=== PATIENT | male | born 1965 | race Two or more races ===

== ENCOUNTER 2016-08-02 08:14 | Day surgery (SDC) | payer OTHER ==
[2016-08-02] VITALS (17 sets, daily range): BP systolic 132–142; BP diastolic 79–96; PULSE 54–72; RESP 12–18; Ht 172.7 cm; Wt 88.0 kg
[~2016-08-02] VITALS: Ht 172.7 cm; Wt 88.0 kg
[~2016-08-02 08:14] MED LIST: BUPIVACAINE 0.25% (MPF) 30 ML INJ INJ ONE
[2016-08-02] MEDS ORDERED: SOD CHLORIDE 0.9% 1,000 ML IV ONE (08:30)
[2016-08-02] MEDS ORDERED: VANCOMYCIN 1 GM in NS 250 ML IVPB ONE (08:30)
[2016-08-02 09:55] LABS: CALCIUM 8.9 mg/dl (8.4-10.2); CREATININE 0.78 mg/dl (0.61-1.24); INR 1.1; POTASSIUM 3.9 mmol/L (3.5-5.1); PROTIME 14.2 Sec (12.2-14.2); PT RATIO 1.1
--- NOTE | 2016-08-02 09:55 | RADRPT ---
PROCEDURE: XR Chest. CLINICAL INDICATION: Preoperative chest TECHNIQUE: Chest AP portable. COMPARISON: No comparison available. FINDINGS: The mediastinal structures are unremarkable. The heart is normal in size and configuration. The pu lmonary vascularity is normal. The lung andres are unremarkable. No consolidation is identified. The pleural spaces are unremarkable. The axial skeleton is unremarkable. IMPRESSION: No active intrathoracic disease. RPTAT: HGDB .Davey Hayes MD, MD Date Time Electronically viewed and signed by .Davey Hayes MD, MD on 08/02/2016 09:54 .B/
[2016-08-02 09:56] LABS: PARTIAL THROMBOPLASTIN TIME 33.5 Sec (25.0-35.0)
[2016-08-02 09:58] LABS: BASOPHILS % 0.6 % (0.0-2.0); HEMOGLOBIN 14.8 g/dl (14.0-18.0); LYMPHOCYTES # 1.5 10^3/ul (0.8-2.9); LYMPHOCYTES % 34.6 % (15.0-51.0); MEAN CORPUSCULAR HGB CONC 34.5 g/dl (32.0-37.0); MEAN CORPUSCULAR VOLUME 89.8 fl (82.0-101.0); MONOCYTE # 0.3 10^3/ul (0.3-0.9); NEUTROPHIL # 2.5 10^3/ul (1.6-7.5); NEUTROPHILS % 56.8 % (39.0-77.0); PLATELET COUNT 143 10^3/UL (140-440); RED BLOOD COUNT 4.79 10^6/ul (4.70-6.10); RED CELL DISTRIBUTION WIDTH 13.6 % (11.5-14.5); UNCORRECTED WBC 4.4 10^3/ul (4.8-10.8); WHITE BLOOD COUNT 4.4 10^3/ul (4.8-10.8)
[2016-08-02 10:20] LABS: CONDITION 1
[2016-08-02] MEDS ORDERED: CITRIC ACID/NA CITRATE 30 ML CUP ONE (10:56)
[2016-08-02] MEDS ORDERED: ROCURONIUM 50 MG INJ ONE (10:57)
[2016-08-02] MEDS ORDERED: PROPOFOL 20 ML ONE (10:57)
[2016-08-02] MEDS ORDERED: MIDAZOLAM 1 MG/ML 2 ML INJ ONE (10:58)
[2016-08-02] MEDS ORDERED: FENTAnyl 50 MCG/ML VIAL ONE (10:58)
[2016-08-02] MEDS ORDERED: ONDANSETRON 4 MG INJ IV PRN ×3 (11:00→17:00)
[2016-08-02] MEDS ORDERED: ACETAMINOPHEN/CODEINE #3 TAB PO PRN ×2 (11:00→17:00)
[2016-08-02] MEDS ORDERED: morphine 2 MG INJ IV PRN (11:00)
[2016-08-02] MEDS ORDERED: ACETAMINOPHEN 1000MG/100ML IV 100 ML IVPB PRN (11:00)
[2016-08-02] MEDS ORDERED: ROPIVACAINE 0.2% 20 ML VIAL ONE (11:05)
[2016-08-02] MEDS ORDERED: PHENYLephrine (100 MCG/ML) 5ML SYG ONE (11:29)
[2016-08-02] MEDS ORDERED: EPHEDrine SULFATE 50 MG/5 ML SYG ONE (11:52)
[2016-08-02] MEDS ORDERED: ESMOLOL 10 ML ONE (11:59)
[2016-08-02] MEDS ORDERED: GLYCOPYRROLATE 0.4 MG INJ ONE (12:19)
[2016-08-02] MEDS ORDERED: NEOSTIGMINE 3 MG/3 ML SYRINGE ONE (12:19)
[2016-08-02] MEDS ORDERED: ONDANSETRON 4 MG INJ ONE (12:27)
[2016-08-02] MEDS ORDERED: FAMOTIDINE 20 MG INJ ONE (12:27)
[2016-08-02] MEDS ORDERED: HYDROmorphONE (0.2 MG/ML) 10ML SYG IV PRN (12:30)
[2016-08-02] MEDS ORDERED: hydrALAzine 20 MG INJ IV PRN (12:30)
[2016-08-02] MEDS: HYDROmorphONE (0.2 MG/ML) 10ML SYG IV PRN ×2 (12:57→13:39)
--- NOTE | 2016-08-02 13:56 | OPR ---
DATE OF OPERATION: 08/02/2016 PREOPERATIVE DIAGNOSES: 1. Symptomatic cholelithiasis. 2. Umbilical hernia. POSTOPERATIVE DIAGNOSIS: 1. Symptomatic cholelithiasis with chronic cholecystitis. 2. Umbilical hernia. OPERATION PERFORMED: 1. Laparoscopic cholecystectomy. 2. Umbilical herniorrhaphy. ANESTHESIOLOGIST INDICATIONS FOR PROCEDURE: The patient is a 50-year-old male who presented with right upper quadran t pain. Workup including ultrasound revealed the gallstone to be completely filled with calculi. T he patient was counseled as to the risks versus benefits of cholecystectomy. He consented. It was also noted that he had umbilical hernia on exam and was told that, that would be repaired at the [facility] time, he also consented for the umbilical hernia repair. DESCRIPTION OF PROCEDURE: The patient was brought to the operating theater, placed under general en dotracheal tube anesthesia. The abdomen was shaved, prepped and draped in usual sterile fashion. A 2-cm incision was made in the midline just above the umbilicus. Subcutaneous tissue was dissected with cautery down to the anterior rectus sheath, 0 Vicryl stay sutures were placed on either side of the linea alba. The linea alba was incised and the abdomen was entered without difficulty. Dr. Teresita harman palpated the umbilical region. A small hernia was just inferior to the incision. Decision was made to repair that after first performing a cholecystectomy. The Kya trocar was then placed in the standard fashion and the abdomen was insufflated to a press ure of approximately 14 mmHg with carbon dioxide. Laparoscope was introduced. Attention was direct ed to the right upper quadrant where a very thick walled gallbladder with omental adhesions and a ve ry large stone silhouette was identified. Three accessory ports were placed under direct vision in standard fashion. The gallbladder was then grasped through the lateral port sites at the fundus and neck and with combination of blunt dissection and cautery, the adhesions were taken down. The mavis toneum overlying the gallbladder was incised both medially and laterally, to allow mobilization of [facility] [place]. With meticulous dissection, the cystic duct was isolated. Two clips were elvin nicolas across it distally and it was then transected with endovascular ALEX stapler. Subsequently, cyst ic artery was isolated, triply clipped and transected. Gallbladder was dissected out of the gallbla dder fossa using cautery. Prior to final transection, irrigation and inspection took place. Minimal bleeding was controlled w ith cautery. The gallbladder was transected. Laparoscope was moved to the 12-mm subcostal port sit e, and the gallbladder was retrieved from the abdomen using the gallbladder retrieval bag, and broug ht out through the umbilical port site. Kya trocar was returned to the abdomen. The abdomen was reinsufflated. The laparoscope was moved back to the umbilical port. Final irrigation and inspect ion took place. There was no evidence of bleeding. The 3 accessory ports were then removed. Again , there was no evidence of bleeding. Finally, the umbilical port was removed. Dr. Castelan then made in full extension of the incision at the umbilical port inferiorly to open up her hernia. The sac w as transected. It contained only fatty tissue consistent with probable omentum. It was sent for pe rmanent pathologic analysis. The defect was then repaired in primary fashion with 0 Prolene sutures in [id number] fashion. All wounds were irrigated with Betadine and skin incisions were reapproximated with skin jong. T he patient tolerated the procedure well. Estimated blood loss was 20 mL. There were no complicatio ns and the patient was transported in stable condition to the recovery room. Dictated By: AGUSTIN MCCANN/DAMION Conf#: [id number] DID#: [id number]
[2016-08-02] MEDS: D5W-0.45 NACL + KCL 20 MEQ 1,000 ML IV SCH ×2 (17:00→18:32)
--- NOTE | 2016-08-02 17:22 | HP ---
DATE OF ADMISSION: 08/02/2016 HISTORY OF PRESENT ILLNESS: The patient is a 50-year-old male who presented with right upp er quadrant pain. Workup including ultrasound revealed gallbladder to be completely filled with agnelita culi. The patient was diagnosed with chronic cholecystitis. The patient was brought to the [facility] and underwent laparoscopic cholecystectomy and umbilical herniorrhaphy. The patient experienced s ome postoperative pain and nausea. Patient will be admitted for further evaluation and management t o the medical surgical floor. PAST MEDICAL HISTORY: Patient denies having a past medical history. Denies hypertension, denies laith betes, denies any cardiac problems. PAST SURGICAL HISTORY: None. SOCIAL HISTORY: The patient lives at home. Patient denies any tobacco use. Denies any illicit sundeep g use. Patient stated that he uses alcohol occasionally. FAMILY HISTORY: Noncontributory. ALLERGIES: THE PATIENT IS ALLERGIC TO PENICILLIN. MEDICATIONS ON ADMISSION: None. REVIEW OF SYSTEMS: A 12-point review of systems is negative unless what mentioned in the HPI. PHYSICAL EXAMINATION: GENERAL: Well-developed, well-nourished gentleman in no acute distress. VITAL SIGNS: Temperature is 97.4, pulse is 56, blood pressure is 132/90, respiratory rate 16, oxyge n saturation is 100% on 2 liters nasal cannula. HEENT: Head is atraumatic, normocephalic. Pupils equal, round, reactive to light and accommodation . Oral mucosa is pink and moist. NECK: Supple, no cervical lymphadenopathy, no thyromegaly. CHEST: Lungs clear bilaterally. There is no rhonchi, wheezes, rales noted. CARDIOVASCULAR: Normal S1, S2. No murmurs, gallops, clicks, rubs noted. ABDOMEN: Status post laparoscopic surgery. EXTREMITIES: There is no edema, clubbing, cyanosis. Pulses equal bilaterally 2+. SKIN: There is no rash, petechiae noted. NEUROLOGIC: Patient is awake, alert and oriented x4. No focal deficits noted. Motor strength 5/5 in all extremities. LABORATORY DATA: On admission, CBC: White blood cells 4.4, hemoglobin 14.8, hematocrit 43.0, platel ets 143. Chemistry: Sodium 143, potassium 2.9, chloride 106, carbon dioxide 26, anion gap 15, BUN of 17, creatinine 0.78, glucose 99, calcium is 8.9. PT is 14.2, INR 1.1, APTT is 33.5. IMAGING: Chest x-ray with no active intrathoracic disease. ASSESSMENT AND PLAN: 1. Symptomatic cholelithiasis with chronic cholecystitis status post laparoscopic cholecystectomy. 2. Umbilical hernia, status post umbilical herniorrhaphy by Dr. Castelan. Admit patient to medical/codey gical floor 3. Tylenol p.r.n. and morphine p.r.n. for pain, Zofran p.r.n. for nausea. Continue IV fluids, adva nce diet as patient tolerates. The patient received preoperative antibiotics. 4. Continue IV fluids, sequential compression device for deep venous thrombosis prophylaxis. CBC a nd BMP tomorrow. Further recommendations based on clinical course. Plan of care discussed with Dr. Ross. Dictated By: JESUS CHIRINOS DECORATION CHECKER for ROLANDO ROSS MD SR/NTS Conf#: [id number] DID#: [id number]
[2016-08-02] MEDS: morphine 2 MG INJ IV PRN (18:34)
[2016-08-03] VITALS: BP 122/79; PULSE 70; RESP 20
[2016-08-03] MEDS: D5W-0.45 NACL + KCL 20 MEQ 1,000 ML IV SCH ×2 (00:42→08:47)
[2016-08-03] MEDS: morphine 2 MG INJ IV PRN ×2 (00:44→08:47)
[2016-08-03 04:00] VITALS: BP 122/70; PULSE 67; RESP 20
[2016-08-03 07:39] VITALS: BP 128/87; RESP 19
[2016-08-03 08:29] LABS: BASOPHILS % 0.6 % (0.0-2.0); EOSINOPHILS % 0.8 % (0.0-7.0); HEMATOCRIT 40.6 % (42.0-52.0); HEMOGLOBIN 13.9 g/dl (14.0-18.0); LYMPHOCYTES # 1.6 10^3/ul (0.8-2.9); LYMPHOCYTES % 26.5 % (15.0-51.0); MEAN CORPUSCULAR HEMOGLOBIN 30.9 pg (29.0-33.0); MEAN CORPUSCULAR HGB CONC 34.3 g/dl (32.0-37.0); MEAN CORPUSCULAR VOLUME 90.1 fl (82.0-101.0); MEAN PLATELET VOLUME 9.1 fl (7.4-10.4); MONOCYTE # 0.6 10^3/ul (0.3-0.9); MONOCYTES % 10.6 % (0.0-11.0); NEUTROPHIL # 3.7 10^3/ul (1.6-7.5); NEUTROPHILS % 61.5 % (39.0-77.0); PLATELET COUNT 146 10^3/UL (140-440); RED BLOOD COUNT 4.51 10^6/ul (4.70-6.10); RED CELL DISTRIBUTION WIDTH 13.5 % (11.5-14.5)
[2016-08-03 08:31] LABS: CREATININE 0.77 mg/dl (0.61-1.24)
[2016-08-03 08:32] LABS: CALCIUM 8.4 mg/dl (8.4-10.2)
[2016-08-03 08:38] LABS: CONDITION 1
[2016-08-03] MEDS ORDERED: HYDR-906 PO (17:32)
--- NOTE | 2016-08-03 20:03 | PN ---
DATE: SUBJECTIVE: No complaint. No nausea, no vomiting, no fever. Has been passing gas. OBJECTIVE: VITAL SIGNS: 98.8, 70, 19, blood pressure 128/87, saturation 98% on room air. ABDOMEN: Soft. Wounds are clean and clear. Bowel sounds present. EXTREMITIES: No calf tenderness. No edema. ASSESSMENT: Postoperative day #1, status post laparoscopic cholecystectomy. The patient feels fine , stable, has passed gas. No bowel movement, no nausea, no vomiting, no fever. Abdomen is benign. PLAN: The patient can be discharged home. Follow up by Dr. Castelan in his office as per schedule . The patient is going to call the office and make the appointment. Dictated By: MOE JACKSON MD PS/DAMION Conf#: [id number] DID#: [id number]
--- NOTE | 2016-08-04 14:47 | RADRPT ---
Vent Rate: 58 bpm RR Interval: 0 msec [place] Interval: 156 msec QRS Duration: 96 msec QT Interval: 408 msec QTC Interval: 400 msec P-R-T Jerome: 47 - 71 - 62 degrees Sinus bradycardia Otherwise normal ECG Electronically Signed By: Dinesh Decker [id number]
== END 2016-08-03 18:40 | disposition home or self-care (01) ==
LOC: SDS 08:14 → MS2 14:56 → SDS 08-03 18:40
PROVIDERS: ATTEND Surgery Surgical Oncology
DX: K80.10 Calculus of gallbladder with chronic cholecystitis without obstruction (principal); K42.9 Umbilical hernia without obstruction or gangrene
CPT/HCPCS: 47562; 49585; 71010; 80048; 85025; 85610; 85730; 88302; 88304; 93005; J1170; J2250; J2270; J2370; J2405; J2710; J2795; J3010; J3370; J3480; Z7512; Z7610

== ENCOUNTER 2016-08-05 15:17 | Outpatient (CLI) | payer OTHER ==
[~2016-08-05] VITALS: Ht 177.8 cm; Wt 88.2 kg
[2016-08-05 15:07] VITALS: BP 145/98; PULSE 78; RESP 16; Ht 177.8 cm; Wt 88.2 kg
--- NOTE | 2016-08-05 15:12 | PN ---
Date/Time of Note Date/Time of Note DATE: 08/05/16 TIME: 15:12 Outpatient Progress Note Chief Complaint Abdominal pain/gallstone HPI Abdominal pain/patient was recently admitted with the abdominal pain, patient's acute cholecystitis, patient also has cholelithiasis, no fevers chill, pain score 5 out of 10 now, reduced with pain medication, Gallstone/patient has gallstone, patient had acute cholecystitis, patient has a laparoscopic cholecystectomy, Umbilical hernia/patient has umbilical hernia, patient had surgery, patient also had the laparoscopic cholecystectomy, Review of Systems Const: No Fever, no chills, no Wt. loss, no Fatigue, normal appetite, no diaphoresis. Eyes: No pain, no discharge, no redness, no visual change, no foreign body. ENT: No pain, no bleeding, no congestion, no sore throat, no dysphagia, no discharge or rhinitis. Lymph: No adenopathy, no tender nodes, no lymphedema. Resp: No SOB, no cough, no sputum, no wheezing, no chest pain. CV: No chest pain, no palpitaions, no DURAN, no PND, no edema. GI: Normal appetite, mild abdominal pain, no nausea, no vomiting, no diarrhea, no blood, no constipation. : No frequency, no urgency, no dysuria, no hematuria, no flank pain, no discharge, no bleeding. Musc: No bone/joint pain, no back pain, no neck pain, no knee pain, no restricted ROM. Skin: No rash, no skin lesions, no erythema, no laceration, no bruising, no pruritus. Neuro: No HANSON, no dizziness, no syncope, no seizure, no focal-weakness. Endo: No polyuria, no polydypsia, no dry-skin, no temp-intolerance. Psych: No hallucinations, no depression, no anxiety, no suicidal ideation. Ext: No edema, no pain, no ulcer, no weakness. Physical Exam General Appearance: A 50 year-old male who appears well-developed, well- nourished, in no acute distress. HEENT: Head normocephalic, atraumatic. Pupils equal, round, reactive to light and accommodate. Sclerae are no jaundice. Nasal turbinates pink without erythema or nasal discharge. Mucous membranes pink and moist without lesions. Oropharynx clear without any exudate or discharge. NECK: Supple. Trachea midline, No thyromegaly, No cervical lymphadenopathy, No mass, No carotid bruits, No JVD, Carotid pulses 2+ bilaterally. PULMONARY: Clear to auscultaion bilaterally, No retractions, Chest expansion symmetric bilaterally, no rales, no ronchi, no dulness on percussion. CARDIAC: Normal SI and S2, Regular rate and rythm, no murmur, gallop, or rub. GASTROINTESTINAL: Abdomen is soft mild abdominal pain, multiple jong from laparoscopic cholecystectomy, no redness, no bleeding or discharge, Non Rigid, No distention, Positive bowel sounds x4 quadrants, Liver normal. SKIN: Warm, dry, no rash, no bruise, no echmosis. EXTREMITIES: Bilateral lower extremities normal, no edema, no phlabitus, pulse palpable, no contracture. MUSCULOSKELETAL: Spine Normal, Non-tender, Normal range of motion, No swelling, no deformity, no clubbing, or cyanosis, the patient has no edema to bilateral lower extremities, dorsalis pedis pulses palpable bilaterally. NEUROLOGIC: The patient is awake, alert, oriented, responding to yes/no questions appropriately, moving all extremities, cranial nerve intact, normal strenght, normal power, normal coordination, normal gait. Allergies Coded Allergies: Penicillins (Verified Allergy, Unknown, 07/30/16) PMH Abdominal pain/gallstones/umbilical hernia/cholecystectomy Status post laparoscopy cholecystectomy/umbilical hernia repair Social Hx No smoking or drinking, no drugs, Family Hx Noncontributory Assessment/Plan Impression Abdominal pain/gallstones/umbilical hernia/laparoscopic cholecystectomy Plan Patient had recently laparoscopy cholecystectomy, and also had umbilical hernia repair, patient doing well, patient has slight itching around the umbilicus, patient has multiple stable, no bleeding discharge or redness, no cellulitis, Patient education done postop, and patient's is stable will be taken care in few days, Patient to follow with the primary care physician, Medications Home Meds Active Scripts Hydrocodone/Acetaminophen ([place] 5-325 Tablet) 1 Each Tablet, 1 EACH PO Q4 for PAIN, #20 TAB Prov:JESUS CHIRINOS 08/03/16 TALHA PETIT MD Aug 05, 2016 15:12
[~2016-08-05 15:17] MED LIST changes: -BUPIVACAINE 0.25% (MPF) 30 ML INJ INJ ONE; +HYDR-906 PO
== END 2016-08-05 17:00 | disposition home or self-care (01) ==
LOC: DCC 15:17
PROVIDERS: ATTEND Internal Medicine
DX: K80.80 Other cholelithiasis without obstruction (principal); K42.9 Umbilical hernia without obstruction or gangrene; K46.9 Unspecified abdominal hernia without obstruction or gangrene; R10.9 Unspecified abdominal pain
CPT/HCPCS: G0463

== ENCOUNTER 2016-08-30 11:21 | Outpatient (CLI) | payer OTHER ==
[~2016-08-30] VITALS: Ht 177.8 cm; Wt 89.1 kg
[2016-08-30 11:27] VITALS: BP 139/86; PULSE 69; RESP 16; Ht 177.8 cm; Wt 89.1 kg
--- NOTE | 2016-08-30 11:39 | PN ---
Date/Time of Note Date/Time of Note DATE: 08/30/16 TIME: 11:39 Outpatient Progress Note Chief Complaint Abdominal pain/status post cholecystectomy HPI Abdominal pain/patient still has slight abdominal discomfort, feels like a gas pain, no nausea vomiting, no fever or chill, sometimes patient has pain in the back in between the shoulder blades, pain not aggravated it fatty food or fried food Status post cholecystectomy/patient had a gallstone, patient had laparoscopy cholecystectomy, no nausea vomiting, no jaundice, no fever or chill, operative site clean, no bleeding discharge cellulitis, Review of Systems Const: No Fever, no chills, no Wt. loss, no Fatigue, normal appetite, no diaphoresis. Eyes: No pain, no discharge, no redness, no visual change, no foreign body. ENT: No pain, no bleeding, no congestion, no sore throat, no dysphagia, no discharge or rhinitis. Lymph: No adenopathy, no tender nodes, no lymphedema. Resp: No SOB, no cough, no sputum, no wheezing, no chest pain. CV: No chest pain, no palpitaions, no DURAN, no PND, no edema. GI: Normal appetite, minimal epigastric pain, feels like gas pain, no nausea, no vomiting, no diarrhea, no blood, no constipation. : No frequency, no urgency, no dysuria, no hematuria, no flank pain, no discharge, no bleeding. Musc: No bone/joint pain, no back pain, no neck pain, no knee pain, no restricted ROM. Skin: No rash, no skin lesions, no erythema, no laceration, no bruising, no pruritus. Neuro: No HANSON, no dizziness, no syncope, no seizure, no focal-weakness. Endo: No polyuria, no polydypsia, no dry-skin, no temp-intolerance. Psych: No hallucinations, no depression, no anxiety, no suicidal ideation. Ext: No edema, no pain, no ulcer, no weakness. Physical Exam General Appearance: A 50 year-old male who appears well-developed, well- nourished, in no acute distress. HEENT: Head normocephalic, atraumatic. Pupils equal, round, reactive to light and accommodate. Sclerae are no jaundice. Nasal turbinates pink without erythema or nasal discharge. Mucous membranes pink and moist without lesions. Oropharynx clear without any exudate or discharge. NECK: Supple. Trachea midline, No thyromegaly, No cervical lymphadenopathy, No mass, No carotid bruits, No JVD, Carotid pulses 2+ bilaterally. PULMONARY: Clear to auscultaion bilaterally, No retractions, Chest expansion symmetric bilaterally, no rales, no ronchi, no dulness on percussion. CARDIAC: Normal SI and S2, Regular rate and rythm, no murmur, gallop, or rub. GASTROINTESTINAL: Abdomen is soft, non-tender, operative site clean, no cellulitis, no bleeding discharge, laparoscopic opening healed, Non Rigid, No distention, Positive bowel sounds x4 quadrants, Liver normal. SKIN: Warm, dry, no rash, no bruise, no echmosis. EXTREMITIES: Bilateral lower extremities normal, no edema, no phlabitus, pulse palpable, no contracture. MUSCULOSKELETAL: Spine Normal, Non-tender, Normal range of motion, No swelling, no deformity, no clubbing, or cyanosis, the patient has no edema to bilateral lower extremities, dorsalis pedis pulses palpable bilaterally. NEUROLOGIC: The patient is awake, alert, oriented, responding to yes/no questions appropriately, moving all extremities, cranial nerve intact, normal strenght, normal power, normal coordination, normal gait. Allergies Coded Allergies: Penicillins (Verified Allergy, Unknown, 07/30/16) PMH No change Social Hx No change Family Hx No change Assessment/Plan Impression Abdominal discomfort/status post laparoscopic cholecystectomy Plan Patient feeling comfortable, no pain, occasionally gas pain patient advised if patient has not gas may by Gas-X [id number], and may use when necessary, Patient encouraged to follow with the primary care physician in Gen. surgery, If any problem to contact primary care physician, at present patient is comfortable no labs needed,, Medications Home Meds Active Scripts Hydrocodone/Acetaminophen ([place] 5-325 Tablet) 1 Each Tablet, 1 EACH PO Q4 for PAIN, #20 TAB Prov:JESUS CHIRINOS 08/03/16 TALHA PETIT MD Aug 30, 2016 11:39
== END 2016-08-30 16:28 | disposition home or self-care (01) ==
LOC: DCC 11:21
PROVIDERS: ATTEND Internal Medicine
DX: R10.9 Unspecified abdominal pain (principal); Z90.49 Acquired absence of other specified parts of digestive tract
CPT/HCPCS: G0463

== ENCOUNTER 2017-01-03 08:50 | Day surgery (SDC) | payer OTHER ==
[2017-01-03] VITALS (9 sets, daily range): BP systolic 111–137; BP diastolic 77–87; PULSE 58–103; RESP 15–20; Ht 172.7 cm; Wt 87.0 kg
[~2017-01-03] VITALS: Ht 172.7 cm; Wt 87.0 kg
[2017-01-03] MEDS ORDERED: CLINDAMYCIN 600 MG/D5W (PMX) 50 ML IVPB ONE (09:00)
[2017-01-03] MEDS ORDERED: SOD CHLORIDE 0.9% 1,000 ML IV ONE (09:00)
[2017-01-03] MEDS ORDERED: BUPIVACAINE 0.25% (MPF) 30 ML INJ ONE (11:01)
[2017-01-03] MEDS ORDERED: POLYMYXIN/BACITRACIN 1L IRRIG ONE (11:01)
[2017-01-03] MEDS ORDERED: PROPOFOL 20 ML ONE (11:07)
[2017-01-03] MEDS ORDERED: ROCURONIUM 50 MG INJ ONE (11:07)
[2017-01-03] MEDS ORDERED: LIDOCAINE 2% (SDV) 5 ML INJ ONE (11:07)
--- NOTE | 2017-01-03 11:19 | HPN ---
Date/Time of Note Date/Time of Note DATE: 01/03/17 TIME: 11:19 Interval H&P Admission Note Pt. seen H&P reviewed: No system changes LETICIA CLARK MD Jan 03, 2017 11:19
[2017-01-03] MEDS ORDERED: BUPIVACAINE 0.25% (MPF) 30 ML INJ INJ ONE (11:30)
[2017-01-03] MEDS ORDERED: POLYMYXIN/BACITRACIN 1L IRRIG IRR ONE (11:30)
[2017-01-03] MEDS ORDERED: morphine 10 MG INJ ONE (11:55)
[2017-01-03] MEDS ORDERED: GLYCOPYRROLATE 0.4 MG INJ ONE (12:34)
[2017-01-03] MEDS ORDERED: NEOSTIGMINE 3 MG/3 ML SYRINGE ONE (12:34)
--- NOTE | 2017-01-03 12:41 | OPR ---
Date/Time of Note Date/Time of Note DATE: 01/03/17 TIME: 12:34 Operative Report Procedure Date: Jan 03, 2017 Preoperative Diagnosis Recurrent umbilical/ventral hernia without obstruction or gangrene Postoperative Diagnosis Recurrent umbilical/ventral hernia without obstruction or gangrene Operation Performed Repair of recurrent umbilical/ventral hernia with mesh Surgeon: LETICIA CLARK MD Anesthesia: general Anesthesiologist: LETICIA CLARK MD Estimated Blood Loss: minimal Specimens Hernia contents Grafts/Implants Ethicon proceed ventral hernia patch size small Complications: None Pt Condition Post Procedure: stable Disposition: PACU Indications Patient is a 51-year-old male who has a history of laparoscopic cholecystectomy with repair of a umbilical/ventral hernia approximately 6 months ago. Patient presented to the office with recurrence of his umbilical/ventral hernia. He was experiencing pain. He was scheduled for repair. All risks and benefits of the procedure including, but not limited to: Wound Infection, excessive bleeding , postoperative seroma/hematoma formation, hernia recurrence, chronic pain etc. were all explained to the patient in full detail. He fully understood and wished to proceed with the procedure. Informed consent was obtained. Operative\Procedure Findings Fat-containing recurrent umbilical/ventral hernia Procedure Description Patient was brought to the operating room and placed supine on the operating table. Bilateral sequential compression devices were placed on both lower extremities. A dose of broad-spectrum perioperative intravenous antibiotics was given. After the induction of smooth general anesthesia the patient's abdomen was prepped and draped in standard surgical fashion. After performance of the surgical timeout 0.25% Marcaine with epinephrine was injected around the area of the incision. An infraumbilical semicircular incision was then made using a 15 blade scalpel. It was carried down through the skin and the dermis. Blunt dissection was then done using Viktoriya clamps to the level of the anterior rectus fascia. The umbilicus was then encircled using a Viktoriya clamp. A fat-containing umbilical/ventral hernia was identified. The umbilicus was then transected at its base and the sac dissected off of the umbilicus. The hernia contents were transected and passed off the field as specimen. A small Ethicon proceed ventral hernia patch was then used to repair the hernia defect. Its tails were secured to the fascia using interrupted 2-0 Novafil sutures. The mesh was soaked in antibiotic irrigation prior to insertion into the field. With the repair complete it was inspected and noted to be tension-free and hemostatic. The wound cavity was then irrigated with more antibiotic containing irrigation. The fascia was then reapproximated over the mesh using a 0 PDS suture in ounirr-dy-elpiq fashion. The umbilicus was then tacked back down to the fascia using interrupted 3-0 Vicryl suture. Incision was then closed in layers using interrupted 3-0 Vicryl sutures for the dermal layer. The skin was reapproximated using a running 4-0 Monocryl suture in subcuticular fashion. Further local anesthesia was applied around the skin of the incision site. Incision was cleaned and Dermabond was applied. The patient was awoken from anesthesia and transported to the recovery room in stable condition. All counts were correct at the end of the case 2. LETICIA CLARK MD Jan 03, 2017 12:41
[2017-01-03] MEDS ORDERED: morphine 2 MG INJ IV PRN (13:00)
[2017-01-03] MEDS ORDERED: hydrALAzine 20 MG INJ IV PRN (13:00)
[2017-01-03] MEDS ORDERED: MEPERIDINE 25 MG INJ IV PRN (13:00)
[2017-01-03] MEDS ORDERED: ONDANSETRON 4 MG INJ IV PRN ×2 (13:00)
[2017-01-03] MEDS ORDERED: KETOROLAC 30 MG INJ IV PRN (13:00)
[2017-01-03] MEDS ORDERED: FENTAnyl 50 MCG/ML VIAL IV PRN ×3 (13:00)
[2017-01-03] MEDS ORDERED: HYDROCODONE/APAP (5/325) TAB PO PRN ×2 (13:00)
[2017-01-03] MEDS ORDERED: OXYCODONE/ACETAMINOPHEN (5/325) TAB PO PRN ×2 (13:00)
[2017-01-03] MEDS ORDERED: LABETALOL HCL 20MG INJ IV PRN (13:00)
[2017-01-03] MEDS ORDERED: DIPHENHYDRAMINE 50 MG INJ IV PRN (13:00)
[2017-01-03] MEDS ORDERED: EPHEDrine SULFATE 50 MG/5 ML SYG IV PRN (13:00)
[2017-01-03] MEDS ORDERED: IBUPROFEN 600 MG TAB PO PRN (13:00)
== END 2017-01-03 14:04 | disposition home or self-care (01) ==
LOC: SDS 08:50
PROVIDERS: ATTEND Surgery
DX: K42.9 Umbilical hernia without obstruction or gangrene (principal); I10 Essential (primary) hypertension
CPT/HCPCS: 49585; 88302; C1781; J1885; J2270; J3010; Z7512; Z7610; J2710